=== PATIENT | female | born 1975 | race Caucasian/White ===

== ENCOUNTER 2018-12-15 17:12 | Emergency (ER) | payer BC ==
[2018-12-15 17:40] VITALS: BP 145/68
[2018-12-15 17:50] LABS: Influenza A Molecular POSITIVE (Negative)
--- NOTE | 2018-12-15 18:02 | UC ---
FLU HPI - HPI Summary HPI Summary: C/O flu. Headache, cough and bodyaches with chills since yesterday. Exposed to flu. - History of Current Complaint Stated Complaint: FEVER,COUGH Hx Obtained From: Patient Hx Last Menstrual Period: n/a Onset/Duration: Sudden Onset, Lasting Days - 1, Worse Since - onset Severity Currently: Severe Severity Initially: Moderate Pain Intensity: 0 Associated Signs & Symptoms: Positive: Fever, Myalgia, Cough, Sore Throat, Headache Related Hx: Possible Flu/Infectious Exposure - Allergy/Home Medications Allergies/Adverse Reactions: Allergies Allergy/AdvReac Type Severity Reaction Status Date / Time ciprofloxacin [From Cipro] Allergy See Comment Verified 12/15/18 17:35 Home Medications: Home Medications Acetaminophen [Acetaminophen Extra Strength] 1,000 mg PO Q8H 12/15/18 [History Confirmed 12/15/18] Albuterol HFA INHALER* [Ventolin HFA Inhaler*] 1 - 2 puff INH Q4H PRN 12/15/18 [ History Confirmed 12/15/18] FLUoxetine CAP* [Prozac CAP*] 20 mg PO DAILY 12/15/18 [History Confirmed ] Lansoprazole SOLUTAB* [Prevacid SOLUTAB*] 15 mg PO DAILY 12/15/18 [History Confirmed 12/15/18] PMH/Surg Hx/FS Hx/Imm Hx Previously Healthy: Yes - Surgical History Surgical History: Yes Surgery Procedure, Year, and Place: TONSILECTOMY 1979. APPENDECTOMY 1988. C- SECTION 2005. UTERUS 2006. OVARIES 2009 - Family History Known Family History: Positive: Hypertension - Social History Occupation: Employed Full-time Lives: With Family Alcohol Use: Rare Substance Use Type: None Smoking Status (MU): Never Smoked Tobacco Review of Systems All Other Systems Reviewed And Are Negative: Yes Constitutional: Positive: Fever, Fatigue ENT: Positive: Sore Throat Respiratory: Positive: Cough Musculoskeletal: Positive: Myalgia Neurological: Positive: Headache Physical Exam Triage Information Reviewed: Yes Appearance: No Pain Distress, Ill-Appearing, Obese Vital Signs: Initial Vital Signs Temp 99.9 F 12/15/18 17:34 Pulse 112 12/15/18 17:34 Resp 18 12/15/18 17:34 BP 145/68 12/15/18 17:34 Pulse Ox 99 12/15/18 17:34 Vital Signs Reviewed: Yes Eyes: Positive: Conjunctiva Inflamed ENT: Positive: Pharynx normal, TMs normal Neck exam: Normal Respiratory: Positive: Lungs clear, Wheezing - expiratory wheeze with coughing Cardiovascular Exam: Normal Musculoskeletal Exam: Normal Neurological Exam: Normal Psychological Exam: Normal Skin Exam: Normal Flu Course/Dx - Differential Dx/Diagnosis Differential Diagnosis/HQI/PQRI: Bronchitis, Broncholiolitis, Influenza, Upper Respiratory Infection Provider Diagnosis: Influenza A, Bronchospasm, acute Discharge - Sign-Out/Discharge Documenting (check all that apply): Patient Departure All imaging exams completed and their final reports reviewed: No Studies - Discharge Plan Condition: Stable Disposition: HOME Prescriptions: Oseltamivir CAP* [Tamiflu CAP*] 75 mg PO BID #10 cap predniSONE TAB* [Deltasone 20 MG TAB*] 60 mg PO DAILY #18 tab Patient Education Materials: Influenza (ED), Oseltamivir (By mouth), Bronchospasm (ED), Prednisone (By mouth) Forms: *Work Release Referrals: Rose Mary Sanz MD [Primary Care Provider] - 3 Days (Follow up blood pressure.) - Billing Disposition and Condition Condition: STABLE Disposition: Home
== END 2018-12-15 18:15 | disposition home or self-care (01) ==
LOC: UCCORT 17:12
DX: J10.1 Influenza due to other identified influenza virus with other respiratory manifestations (principal); J98.01 Acute bronchospasm; Z88.1 Allergy status to other antibiotic agents
CPT/HCPCS: 99212; G0463

== ENCOUNTER 2019-01-21 08:33 | Emergency (ER) | payer BC ==
[2019-01-21 09:58] VITALS: BP 143/78
--- NOTE | 2019-01-21 10:07 | UC ---
General HPI - HPI Summary HPI Summary: DROPPED A PLATE ON R GREAT TOE LAST PM. C/O PAIN TO SITE AND BLOOD UNDER THE NAIL. - History of Current Complaint Chief Complaint: UCLowerExtremity Stated Complaint: RIGHT FOOT CONCERN Time Seen by Provider: 01/21/19 10:01 Hx Obtained From: Patient Hx Last Menstrual Period: 2006 Timing: Constant Pain Intensity: 5 Aggravating: MOVEMENT Associated Signs & Symptoms: Positive: Edema. Negative: Fever - Allergy/Home Medications Allergies/Adverse Reactions: Allergies Allergy/AdvReac Type Severity Reaction Status Date / Time ciprofloxacin [From Cipro] Allergy hypotension Verified 01/21/19 09:53 Home Medications: Home Medications Estradiol 1 tab DAILY 01/21/19 [History Confirmed 01/21/19] PMH/Surg Hx/FS Hx/Imm Hx Previously Healthy: Yes - Surgical History Surgical History: Yes Surgery Procedure, Year, and Place: TONSILECTOMY 1979. APPENDECTOMY 1988. C- SECTION 2005. UTERUS 2006. OVARIES 2008 - Family History Known Family History: Positive: Hypertension - Social History Occupation: Employed Full-time Alcohol Use: Occasionally Substance Use Type: None Smoking Status (MU): Never Smoked Tobacco - Immunization History Vaccination Up to Date: Yes Immunizations Comment: uncertain about tdap, will call pcp. declined shot here. Review of Systems All Other Systems Reviewed And Are Negative: Yes Musculoskeletal: Positive: Other: - r great toe pain Physical Exam Triage Information Reviewed: Yes Appearance: Well-Appearing Vital Signs: Initial Vital Signs Temp 97.1 F 01/21/19 09:54 Pulse 74 01/21/19 09:54 Resp 16 01/21/19 09:54 BP 143/78 01/21/19 09:54 Pulse Ox 100 01/21/19 09:54 Vital Signs Reviewed: Yes Eyes: Positive: Conjunctiva Clear Respiratory: Positive: Lungs clear Cardiovascular: Positive: RRR Abdomen Description: Positive: Nontender Bowel Sounds: Positive: Present Musculoskeletal: Positive: Other: - R great toe tender with subungual hematoma. gross s/v intact. rest of foot is unremarkable. Neurological: Positive: Alert Psychological: Positive: Age Appropriate Behavior Skin Exam: Normal Diagnostics - Radiology No standard instances Radiology Interpretation Completed By: Radiologist - R great toe=IMPRESSION: SOFT TISSUE SWELLING, NO FRACTURE IS SEEN. Course/Dx - Course Course Of Treatment: PA procedure= time out. R great toe cleaned with betadine. trephination performed, blood drained and pt noted pain relief. tolerated well. site covered with gauze and bandage. - Diagnoses Provider Diagnosis: Hematoma, subungual, great toe, right Discharge - Sign-Out/Discharge Documenting (check all that apply): Patient Departure All imaging exams completed and their final reports reviewed: Yes - Discharge Plan Condition: Stable Disposition: HOME Patient Education Materials: Subungual Hematoma (ED) Referrals: Rose Mary Sanz MD [Primary Care Provider] - If Needed - Billing Disposition and Condition Condition: STABLE Disposition: Home - Attestation Statements Provider Attestation: I was available for consult. This patient was seen by the [facility]. The patient was not presented to, seen by, or examined by me. -Jax
== END 2019-01-21 10:43 | disposition home or self-care (01) ==
LOC: UCCORT 08:33
DX: S90.112A Contusion of left great toe without damage to nail, initial encounter (principal); W20.8XXA Other cause of strike by thrown, projected or falling object, initial encounter; Y92.9 Unspecified place or not applicable
CPT/HCPCS: 11740; 99211; G0463